=== PATIENT | male | born 1940 | race Caucasian/White ===

== ENCOUNTER 2017-04-08 04:15 | Emergency (ER) | payer MEDICARE ==
[2017-04-08 04:52] LABS: #Basophils 0.1 thou/uL (0.0-0.2); #Eosinphils 0.5 thou/uL (0.0-0.7); #Lymphocytes 1.6 thou/uL (1.20-3.40); #Monocytes 0.6 thou/uL (0.11-0.59); #Neutrophils 2.7 thou/uL (1.40-6.50); %Lymphocytes 28.9 % (21.0-51.0); %Monocytes 11.6 % (0.0-10.0); %Neutrophils 49.6 % (42.0-75.0); Hemoglobin 15.6 g/dL (14.0-18.0); Mean Corpuscular HGB CONC 33.2 g/dL (32.0-36.0); Mean Corpuscular Hemoglobin 32.6 pg (27.0-31.0); Mean Corpuscular Volume 98.2 fl (80.0-94.0); Mean Platelet Volume 8.4 fL (7.4-10.4); Platelet Count 186 thou/uL (130-400); RBC Distribution Width 11.9 % (11.5-14.5); Red Blood Cell (RBC) Count 4.79 mill/uL (4.70-6.10); White Blood Cell (WBC) Count 5.4 thou/uL (4.8-10.8)
[2017-04-08 05:09] LABS: Anion Gap 12 mmol/L (10-20); BUN (Urea Nitrogen) 17 mg/dL (8.4-25.7); Calc. Creatinine Clearance 0 mL/min (70-130); Calcium 9.6 mg/dL (7.8-10.44); Carbon Dioxide 28 mmol/L (23-31); Chloride 105 mmol/L (98-107); Estimated GFR-MDRD 73; Glucose 114 mg/dL (83-110); Potassium 3.5 mmol/L (3.5-5.1); Sodium 141 mmol/L (136-145)
[2017-04-08 05:39] LABS: Bilirubin Negative (Negative); Blood, Urine Negative (Negative); Clarity CLEAR (Clear); Glucose, Urine (Dipstick) Negative (Negative); Leukocyte Trace (Negative); Nitrite Negative (Negative); Protein, Urine (Dipstick) Negative (Neg-Trace); Specific Gravity, Urine 1.013 (1.002-1.036); Urobilinogen 0.2 mg/dL (0.2-1.0)
[2017-04-08 05:42] LABS: Bacteria/HPF None Seen HPF (None Seen); Hyaline Casts/LPF 0-3 HYALINE CAST LPF (0-3 Hyaline); Squamous Epithelial None Seen HPF (0-3); WBC/HPF 0-3 HPF (0-3)
== END 2017-04-08 07:10 | disposition home or self-care (01) ==
LOC: ERS 04:15
DX: N40.1 Benign prostatic hyperplasia with lower urinary tract symptoms (principal); R33.8 Other retention of urine; I48.91 Unspecified atrial fibrillation; I10 Essential (primary) hypertension; Z79.899 Other long term (current) drug therapy
CPT/HCPCS: 36415; 80048; 81003; 81015; 85025; 87086; 99283

== ENCOUNTER 2017-04-10 10:42 | Emergency (ER) | payer MEDICARE | END 2017-04-10 13:28 | disposition home or self-care (01) | LOC: ERS 10:42 | DX: N40.1 Benign prostatic hyperplasia with lower urinary tract symptoms (principal); R33.8 Other retention of urine; I48.91 Unspecified atrial fibrillation; I10 Essential (primary) hypertension; Z79.899 Other long term (current) drug therapy | CPT/HCPCS: 51702 ==

== ENCOUNTER 2017-04-16 10:39 | Emergency (ER) | payer MEDICARE ==
[2017-04-16 12:00] LABS: Bilirubin Negative (Negative); Blood, Urine Large (Negative); Clarity CLEAR (Clear); Glucose, Urine (Dipstick) Negative (Negative); Leukocyte Trace (Negative); Nitrite Negative (Negative); Protein, Urine (Dipstick) 30 mg/dL (Neg-Trace); Specific Gravity, Urine 1.022 (1.002-1.036)
[2017-04-16 12:03] LABS: Bacteria/HPF None Seen HPF (None Seen); Hyaline Casts/LPF 0-3 HYALINE CAST LPF (0-3 Hyaline); Squamous Epithelial 0-3 HPF (0-3)
[2017-04-16 12:16] LABS: RBC/HPF 21-50 HPF (0-3)
[2017-04-16 12:17] LABS: Crystals/HPF 1+ CA OXALATE HPF (Negative)
[2017-04-16 12:55] LABS: #Eosinphils 0.2 thou/uL (0.0-0.7); #Lymphocytes 0.9 thou/uL (1.20-3.40); #Monocytes 0.5 thou/uL (0.11-0.59); #Neutrophils 3.3 thou/uL (1.40-6.50); %Basophils 0.8 % (0.0-1.0); %Eosinophils 4.3 % (0.0-10.0); %Lymphocytes 17.3 % (21.0-51.0); %Monocytes 9.5 % (0.0-10.0); %Neutrophils 68.1 % (42.0-75.0); Hemoglobin 14.8 g/dL (14.0-18.0); Mean Corpuscular HGB CONC 32.7 g/dL (32.0-36.0); Mean Corpuscular Hemoglobin 32.4 pg (27.0-31.0); Mean Platelet Volume 8.2 fL (7.4-10.4); Platelet Count 159 thou/uL (130-400); RBC Distribution Width 11.7 % (11.5-14.5); Red Blood Cell (RBC) Count 4.58 mill/uL (4.70-6.10); White Blood Cell (WBC) Count 4.9 thou/uL (4.8-10.8)
[2017-04-16 13:17] LABS: ALT (SGPT) 15 U/L (8-55); AST (SGOT) 18 U/L (5-34); Alkaline Phosphatase 75 U/L (40-150); Anion Gap 9 mmol/L (10-20); BUN (Urea Nitrogen) 18 mg/dL (8.4-25.7); Calc. Creatinine Clearance 0 mL/min (70-130); Calcium 9.1 mg/dL (7.8-10.44); Carbon Dioxide 28 mmol/L (23-31); Chloride 106 mmol/L (98-107); Estimated GFR-MDRD 80; Globulin 2.6 g/dL (2.4-3.5); Glucose 103 mg/dL (83-110); Potassium 3.6 mmol/L (3.5-5.1); Protein, Total 6.6 g/dL (5.8-8.1); Sodium 139 mmol/L (136-145)
== END 2017-04-16 13:38 | disposition home or self-care (01) ==
LOC: ERS 10:39
DX: N39.0 Urinary tract infection, site not specified (principal); I48.91 Unspecified atrial fibrillation; I10 Essential (primary) hypertension; N40.0 Benign prostatic hyperplasia without lower urinary tract symptoms; Z79.899 Other long term (current) drug therapy
CPT/HCPCS: 36415; 80053; 81003; 81015; 85025; 87077; 87086; 87186; 99283

== ENCOUNTER 2017-04-23 09:24 | Outpatient (CLI) | payer MEDICARE | END 2017-04-23 09:25 | disposition home or self-care (01) | LOC: LAB 09:24 | PROVIDERS: ATTEND Urology | DX: Z12.5 Encounter for screening for malignant neoplasm of prostate (principal) | CPT/HCPCS: 36415; G0103 ==

== ENCOUNTER 2017-06-27 12:01 | Outpatient (CLI) | payer MEDICARE ==
[2017-06-27 13:02] LABS: Hemoglobin 15.7 g/dL (14.0-18.0); Mean Corpuscular HGB CONC 32.6 g/dL (32.0-36.0); Mean Corpuscular Hemoglobin 31.5 pg (27.0-31.0); Mean Corpuscular Volume 96.8 fl (80.0-94.0); Mean Platelet Volume 9.2 fL (7.4-10.4); Platelet Count 183 thou/uL (130-400); RBC Distribution Width 11.5 % (11.5-14.5); Red Blood Cell (RBC) Count 4.97 mill/uL (4.70-6.10); White Blood Cell (WBC) Count 5.1 thou/uL (4.8-10.8)
[2017-06-27 13:20] LABS: Anion Gap 13 mmol/L (10-20); BUN (Urea Nitrogen) 14 mg/dL (8.4-25.7); Calc. Creatinine Clearance 0 mL/min (70-130); Calcium 9.3 mg/dL (7.8-10.44); Carbon Dioxide 27 mmol/L (23-31); Chloride 103 mmol/L (98-107); Estimated GFR-MDRD 78; Glucose 96 mg/dL (83-110); Potassium 3.7 mmol/L (3.5-5.1); Sodium 139 mmol/L (136-145)
== END 2017-06-27 12:02 | disposition home or self-care (01) ==
LOC: LABBT 12:01
PROVIDERS: ATTEND Urology
DX: Z01.812 Encounter for preprocedural laboratory examination (principal); N40.1 Benign prostatic hyperplasia with lower urinary tract symptoms; R33.8 Other retention of urine
CPT/HCPCS: 80048; 81001; 85027; 87086

== ENCOUNTER 2017-07-05 06:00 | Day surgery (SDC) | payer MEDICARE ==
[2017-06-27 12:26] VITALS: BMI 24.3
[2017-07-05] MEDS ORDERED: Midazolam HCl 2 mg/2 ml Vial ONE (06:42)
[2017-07-05] MEDS ORDERED: Fentanyl 100 MCG/2 ML VIAL ONE (06:42)
[2017-07-05] MEDS ORDERED: Clindamycin/D5W 900 mg/50 ml Premix Bag ONE (06:47)
[2017-07-05] MEDS ORDERED: Dexamethasone 4 mg/ml Vial ONE (06:47)
[2017-07-05] MEDS ORDERED: B & O ONE (07:12)
[2017-07-05] MEDS ORDERED: Furosemide 20 MG/2 ML VIAL ONE (07:12)
[2017-07-05] MEDS ORDERED: Iothalamate Meglumine 60% 50 ML VIAL FS ONE (07:12)
[2017-07-05] MEDS ORDERED: cefTRIAXone\\ROCEPHIN 1 GM, Syringe 0.4 ML in Sterile Water 9.6 ML SLOW IVP SCH (07:15)
--- NOTE | 2017-07-05 11:32 | OP ---
DATE OF SERVICE: 07/05/2017 PREOPERATIVE DIAGNOSES: Benign prostatic hypertrophy and retention. POSTOPERATIVE DIAGNOSES: Benign prostatic hypertrophy and retention. PROCEDURE: GreenLight laser vaporization of the prostate with enucleation of the middle of the lateral lobes, 344,002 joules used. SURGEON: Hali Rutherford M.D. ANESTHESIA: General with endotracheal tube. ESTIMATED BLOOD LOSS: Minimal. DRAINS REMAINING: A 20-Vietnamese 2-way. FINDINGS: Adequate stream with scope removed at the end of the case. SPECIMENS: Prostate. INDICATIONS: The patient is a 76-year-old male who is followed in the office for retention and failed multiple voiding trials despite starting maximum medical therapy and so was set up for definitive intervention. PROCEDURE: The patient was brought into the room by Anesthesia, laid on the table in supine position. After receiving general anesthetic and endotracheal tube his legs were placed in the lithotomy position and his perineum was prepped and draped in sterile fashion after removing his indwelling catheter. A 22.5 Vietnamese scope was used to traverse the urethra and into the bladder. A hair that has been there for some time was noted with some debris on it and by the end of the case it had been rinsed out. Otherwise, there was nothing of concern within the bladder. The ureteral orifices were identified and preserved throughout the case. Power level of 80 was used with the bladder neck to initially manipulate the middle lobe and the lateral lobes. A power level of 180 was used for the mid gland and a power level of 80 was used near the veru. Middle lobe was taken down to the trigone and the trigone was elevated. This was taken down as well. By the time the majority of the prostate had been removed, attention was turned back to the bladder neck where the trigone was taken all the way down to the bladder floor and this was done on both sides of the UO's laterally so that the UO's were elevated and the rest of the bladder floor was taken down at the bladder neck. Multiple chips were too large to rinse out and required a grasper to evacuate. When the scope was removed a good stream was noted. Scope was put back in. Bladder decompressed and hemostasis ensured. A power level of 80 was used to paint the prostate bed where any concern was and then the scope was removed. A final time after leaving a wire in place and a Councill was made to place over the wire and then the wire removed and the Councill was placed to gravity. The patient tolerated the procedure well and was awakened and transferred to the PACU in stable condition. NOEMÍ
--- NOTE | 2017-07-05 16:26 | EKG ---
Test Reason : PREOP Blood Pressure : / mmHG Vent. Rate : 074 BPM Atrial Rate : 074 BPM P-R Int : 162 ms QRS Dur : 116 ms QT Int : 444 ms P-R-T Axes : 071 -31 073 degrees QTc Int : 492 ms Sinus rhythm with occasional Premature ventricular complexes Left axis deviation Incomplete left bundle branch block Prolonged QT Abnormal ECG No previous ECGs available Confirmed by DR. Germaine DURANT ([id number]) on 07/05/2017 4:26:25 PM Referred By: [email or web address] Confirmed By:DR. Germaine DURANT
[2017-07-05] MEDS ORDERED: ePHEDrine/0.9% NaCl/PF SYRINGE 50 mg/10 ml ONE (16:28)
[2017-07-05] MEDS ORDERED: Lidocaine 1% PF 5 ML VIAL ONE (16:28)
[2017-07-05] MEDS ORDERED: Glycopyrrolate 0.2 MG/ML 5 ML SYRINGE ONE ×2 (16:28)
[2017-07-05] MEDS ORDERED: PHENYLEPHRINE-NS 100 MCG/ML 10 ML SYRINGE ONE (16:28)
[2017-07-05] MEDS ORDERED: PROPOFOL 200 MG/20 ML VIAL ONE (16:28)
== END 2017-07-05 12:10 | disposition home or self-care (01) ==
LOC: SDC 06:00
PROVIDERS: ATTEND Urology
PROC: 0V507ZZ Destruction of Prostate, Via Natural or Artificial Opening (ICD-10-PCS; principal; 2017-07-05)
DX: N40.1 Benign prostatic hyperplasia with lower urinary tract symptoms (principal); R33.9 Retention of urine, unspecified; R35.1 Nocturia; Z88.5 Allergy status to narcotic agent; Z98.890 Other specified postprocedural states; Z91.018 Allergy to other foods
CPT/HCPCS: 88305; 93005; 93010; A4216; J0696; J1100; J1940; J2001; J2250; J2704; J3010; J3490; Q9961

== ENCOUNTER 2018-06-19 10:00 | Outpatient (CLI) | payer MEDICARE ==
[2018-06-19 16:24] LABS: #Basophils 0.1 thou/uL (0.0-0.2); #Eosinphils 0.5 thou/uL (0.0-0.7); #Lymphocytes 1.5 thou/uL (1.20-3.40); #Monocytes 0.6 thou/uL (0.11-0.59); #Neutrophils 3.7 thou/uL (1.40-6.50); %Basophils 1.3 % (0.0-1.0); %Eosinophils 7.5 % (0.0-10.0); %Lymphocytes 22.7 % (21.0-51.0); %Monocytes 10.1 % (0.0-10.0); %Neutrophils 58.5 % (42.0-75.0); Hemoglobin 14.8 g/dL (14.0-18.0); Mean Corpuscular HGB CONC 32.2 g/dL (32.0-36.0); Mean Corpuscular Hemoglobin 31.4 pg (27.0-31.0); Mean Corpuscular Volume 97.4 fL (78.0-98.0); Mean Platelet Volume 8.4 fL (7.4-10.4); Platelet Count 189 thou/uL (130-400); RBC Distribution Width 12.3 % (11.5-14.5); Red Blood Cell (RBC) Count 4.73 mill/uL (4.70-6.10); White Blood Cell (WBC) Count 6.4 thou/uL (4.8-10.8)
--- NOTE | 2018-06-19 16:31 | RAD ---
XR Chest Pa Lat STANDARD HISTORY: Preop COMPARISON: 04/13/2014 study FINDINGS: Heart size is within normal limits there are atherosclerotic changes of the aorta. The lung s are clear of infiltrates. There are arthritic changes of the spine. Moderate arthritic changes of both shoulders are noted IMPRESSION: No active intrathoracic disease.
[2018-06-19 16:45] LABS: Anion Gap 11 mmol/L (10-20); BUN (Urea Nitrogen) 18 mg/dL (8.4-25.7); Calc. Creatinine Clearance 0 mL/min (70-130); Calcium 9.1 mg/dL (7.8-10.44); Carbon Dioxide 29 mmol/L (23-31); Chloride 106 mmol/L (98-107); Estimated GFR-MDRD 68; Glucose 98 mg/dL (83-110); Potassium 3.8 mmol/L (3.5-5.1); Sodium 142 mmol/L (136-145)
== END 2018-06-19 10:01 | disposition home or self-care (01) ==
LOC: LABBT 10:00
PROVIDERS: ATTEND Specialist
DX: Z01.818 Encounter for other preprocedural examination (principal); M79.9 Soft tissue disorder, unspecified
CPT/HCPCS: 71046; 80048; 85025; 93005; 93010

== ENCOUNTER 2018-06-22 06:57 | Day surgery (SDC) | payer MEDICARE ==
[2018-06-19 15:52] VITALS: BMI 26.2
[2018-06-22] MEDS ORDERED: Ketorolac Tromethamine 30 MG/ML VIAL ONE (08:13)
[2018-06-22] MEDS ORDERED: Midazolam HCl 2 mg/2 ml Vial ONE (08:33)
[2018-06-22] MEDS ORDERED: Bupivacaine/Epinephrine 0.25% 30 ML VIAL ONE ×2 (09:05→10:20)
[2018-06-22] MEDS ORDERED: Rocuronium Bromide 10 MG/ML (10ML VIAL) ONE (10:49)
[2018-06-22] MEDS ORDERED: PHENYLEPHRINE-NS 100 MCG/ML 10 ML SYRINGE ONE (10:49)
[2018-06-22] MEDS ORDERED: ePHEDrine 50 MG/ML VIAL ONE (10:49)
[2018-06-22] MEDS ORDERED: PROPOFOL 200 MG/20 ML VIAL ONE (10:49)
[2018-06-22] MEDS ORDERED: Ondansetron PF 4 MG/2 ML Vial ONE (10:49)
[2018-06-22] MEDS ORDERED: Succinylcholine Chloride 20 MG/ML 10 ml SYRINGE FS ONE (10:49)
[2018-06-22] MEDS ORDERED: Bacitracin Zinc Ointment 30 gm TUBE ONE (11:04)
[2018-06-22] MEDS ORDERED: Fentanyl 100 MCG/2 ML VIAL ONE (11:49)
--- NOTE | 2018-06-23 13:01 | OP ---
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 A large soft tissue tumor of his upper back just left of midline measuring about 10 cm, and a 3 cm soft tissue mass of his left lateral mid back. 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 A large soft tissue tumor of his upper back just left of midline measuring about 10 cm, and a 3 cm soft tissue mass of his left lateral mid back with suspected lipomas in each location. PROCEDURES PERFORMED: Excision of a 15 cm left posterior neck and shoulder soft tissue tumor, excision of 10 cm soft tissue tumor of mid back, and excision of 3 cm soft tissue tumor of left lateral back. ANESTHESIA: General endotracheal. INDICATIONS: The patient is a 77-year-old white male. He has a large protruding tumor from his left posterior neck that prompted this evaluation. He is recognized to have 2 additional substantial soft tissue tumors and I recommend excision of all 3 under the same anesthetic. DESCRIPTION OF OPERATION: Informed consent was obtained. The patient was taken to the operating room, where general endotracheal anesthesia was obtained with the patient in supine position. He was then rolled over into a prone virgie-knife position. He was able to flex his neck anteriorly so as to give appropriate exposure of the neck mass. The entire area was prepped with Betadine and draped in sterile fashion. Drapes were held in place using skin lakia. Attention was turned first to the neck mass. Local anesthetic was infiltrated circumferentially using 0.25% Marcaine with epinephrine. An elliptical incision was created over the protruding skin mass. The skin flaps were raised superiorly and inferiorly without entering the mass. The mass had a visible and palpable consistency typical of a large lipoma. This was carefully dissected circumferentially leaving none of the lipoma in situ. It was removed from the underlying muscular tissue and hemostasis was maintained with electrocautery. The tumor with the overlying skin bridge was passed off the field. The skin edges were mobilized off the underlying muscle somewhat using electrocautery. A #19 round fluted drain was obtained and placed within the wound and brought out to the right of the incision and it was secured with a 3-0 nylon suture. The skin edges were tailored to better approximation. The portion of the wound was closed with interrupted sutures of 3-0 Vicryl. The skin edges were approximated with skin lakia. Attention was then turned to the lipoma in the mid back. This was also locally anesthetized and excised using an overlying elliptical island of skin. It was dissected circumferentially and removed off the underlying muscular tissue as well and passed off the field. It was also closed transversely using a running suture of 3-0 Vicryl and skin lakia. Finally, attention was turned to the left lateral mass, which was dissected in a vertical fashion rather than transverse, but otherwise this was the same procedure. It was also closed with Vicryl and skin lakia. All specimens were passed off the field and sent to Pathology. There were no complications. I placed a 10-Estonian drain in the mid back incision that was also secured with 3-0 nylon suture. The patient tolerated the procedure well and was taken to recovery room in stable condition. Antibiotic ointment and dry gauze dressings were placed over all 3 incisions. Job ID: [id number]
== END 2018-06-22 14:28 | disposition home or self-care (01) ==
LOC: SDC 06:57
PROVIDERS: ATTEND Specialist
PROC: 0JB50ZZ Excision of Left Neck Subcutaneous Tissue and Fascia, Open Approach (ICD-10-PCS; principal; 2018-06-22)
PROC: 0JB70ZZ Excision of Back Subcutaneous Tissue and Fascia, Open Approach (ICD-10-PCS; 2018-06-22)
PROC: 0JB70ZZ Excision of Back Subcutaneous Tissue and Fascia, Open Approach (ICD-10-PCS; 2018-06-22)
DX: D17.0 Benign lipomatous neoplasm of skin and subcutaneous tissue of head, face and neck (principal); D17.1 Benign lipomatous neoplasm of skin and subcutaneous tissue of trunk; E78.00 Pure hypercholesterolemia, unspecified; Z79.899 Other long term (current) drug therapy; Z87.891 Personal history of nicotine dependence; Z88.5 Allergy status to narcotic agent
CPT/HCPCS: 88304; J0131; J0690; J1885; J2250; J3010

== ENCOUNTER 2019-04-12 22:38 | Emergency (ER) | payer MEDICARE, OTHER ==
[~2019-04-12 22:38] MED LIST: Iopamidol-370 76% 500 ML 1 ML ONE
[2019-04-12 23:26] LABS: #Eosinphils 0.4 thou/uL (0.0-0.7); #Lymphocytes 0.4 thou/uL (1.20-3.40); #Monocytes 0.8 thou/uL (0.11-0.59); #Neutrophils 12.7 thou/uL (1.40-6.50); %Eosinophils 2.7 % (0.0-10.0); %Lymphocytes 2.6 % (21.0-51.0); %Monocytes 5.6 % (0.0-10.0); %Neutrophils 89.1 % (42.0-75.0); Hemoglobin 16.1 g/dL (14.0-18.0); Mean Corpuscular HGB CONC 32.2 g/dL (32.0-36.0); Mean Corpuscular Hemoglobin 32.1 pg (27.0-31.0); Mean Corpuscular Volume 99.7 fL (78.0-98.0); Mean Platelet Volume 8.7 fL (7.4-10.4); Platelet Count 178 thou/uL (130-400); RBC Distribution Width 11.9 % (11.5-14.5); White Blood Cell (WBC) Count 14.2 thou/uL (4.8-10.8)
[2019-04-12 23:48] LABS: ALT (SGPT) 19 U/L (8-55); AST (SGOT) 23 U/L (5-34); Albumin 4.1 g/dL (3.4-4.8); Alkaline Phosphatase 96 U/L (40-110); Anion Gap 12 mmol/L (10-20); BUN (Urea Nitrogen) 20 mg/dL (8.4-25.7); Bilirubin, Total 0.8 mg/dL (0.2-1.2); Calc. Creatinine Clearance 0 mL/min (70-130); Calcium 8.8 mg/dL (7.8-10.44); Carbon Dioxide 27 mmol/L (23-31); Chloride 105 mmol/L (98-107); Estimated GFR-MDRD 62; Globulin 2.7 g/dL (2.4-3.5); Glucose 119 mg/dL (83-110); Lipase 35 U/L (8-78); Potassium 3.9 mmol/L (3.5-5.1); Protein, Total 6.8 g/dL (5.8-8.1); Sodium 140 mmol/L (136-145)
--- NOTE | 2019-04-13 08:56 | CT ---
PRELIMINARY REPORT/[facility]/EMERGENCY AFTER HOURS PROCEDURE: PROCEDURE: CT Scan Abdomen and Pelvis with IV Contrast Material. HISTORY: Abdomen pain. TECHNIQUE: Axial images were performed with multiplanar reconstructions. The patient was given iodin ated contrast intravenously. The patient was not given oral contrast material. COMPARISONS: None . FINDINGS: Clear lung bases. Several subcentimeter hypoattenuating densities both lobes of the liver. Spleen, adrenals, and pancr eas show no abnormality. Kidneys show normal enhancement and no obstructive uropathy. Small stones in the gallbladder with no inflammation and normal size biliary tree. No abdominal ascites or pneumoperitoneum. Mild atherosclerosis aorta. No lymphadenopathy. Fluid throughout large and small bowel with prominent small bowel mucosa consistent with enteritis th at's probably infectious. No bowel obstruction. Appendix is not visualized. Pelvis shows no masses or fluid. Normal urinary bladder. No acute bony abnormality. IMPRESSION: Enteritis is probably infectious. Nonspecific subcentimeter hypoattenuating densities in the liver. Cholelithiasis. ELECTRONICALLY SIGNED BY: Samm Newman MD Apr 13, 2019 12:36:14 AM CONTRACT DESIGN AGENT This report is intended for review by the ordering physician only, in accordance of law. If you recei ve this report in error, please call [facility] at [phone]. FINAL REPORT ABDOMEN CT WITH CONTRAST PELVIC CT WITH CONTRAST: HISTORY: Left lower quadrant abdominal pain. FINDINGS: ABDOMEN CT: Visualized lung bases. Appropriate enhancement of the solid organs. Hypodensities in the liver are too small to characterize. There is a hypodensity in the mid body of the pancreas which may represen t a focal area of fat due to atrophy. No evidence of abdominal lymphadenopathy. Symmetric enhancement of the kidneys. No obstructive urop athy. Subcentimeter hypodensities in the left and right renal cortex likely represent cysts. There are multiple fluid-filled distended loops of small bowel. The ileocecal junction is patent. N ormal caliber appendix, that is fluid-filled. No inflammatory change. There is fluid attenuation th roughout the colon. There is evidence of cholelithiasis. PELVIC CT: There is a mildly prominent prostate gland. IMPRESSION: This report is in agreement with the preliminary report by [facility]. Enteritis of an infecti ous or inflammatory process. POS: OFF
== END 2019-04-13 01:11 | disposition home or self-care (01) ==
LOC: ERS 22:38
DX: K52.9 Noninfective gastroenteritis and colitis, unspecified (principal); N40.0 Benign prostatic hyperplasia without lower urinary tract symptoms; I48.91 Unspecified atrial fibrillation; I10 Essential (primary) hypertension; Z79.899 Other long term (current) drug therapy
CPT/HCPCS: 36415; 74177; 80053; 83690; 85025; Q9967

== ENCOUNTER 2021-01-23 13:41 | Outpatient (CLI) | payer MEDICARE | END 2021-01-23 13:42 | disposition home or self-care (01) | LOC: BICCT 13:41 | PROVIDERS: ATTEND Urology | DX: R31.0 Gross hematuria (principal); N32.89 Other specified disorders of bladder; R91.8 Other nonspecific abnormal finding of lung field | CPT/HCPCS: 74178; 82565; Q9967 ==

== ENCOUNTER 2022-12-14 16:06 | Inpatient (IN) | payer OTHER, MEDICARE ==
[2022-12-14 17:20] LABS: #Monocytes 0.6 thou/uL (0.11-0.59); #Neutrophils 7.6 thou/uL (1.40-6.50); %Basophils 0.2 % (0.0-1.0); %Lymphocytes 2.4 % (21.0-51.0); Hematocrit 43.2 % (42.0-52.0); Hemoglobin 14.3 g/dL (14.0-18.0); Mean Corpuscular HGB CONC 33.1 g/dL (32.0-36.0); Mean Corpuscular Hemoglobin 32.2 pg (27.0-31.0); Mean Corpuscular Volume 97.3 fl (78.0-98.0); Mean Platelet Volume 10.9 fL (7.4-10.4); Platelet Count 143 10x3/uL (130-400); RBC Distribution Width 13.4 % (11.5-14.5); Red Blood Cell (RBC) Count 4.44 mill/uL (4.70-6.10); White Blood Cell (WBC) Count 8.4 10x3/uL (4.8-10.8)
[2022-12-14 17:48] LABS: CRP (Inflammatory) 0.63 mg/dL (= or < 0.5); Lipase 10 U/L (8-78); Magnesium 1.9 mg/dL (1.6-2.6)
[2022-12-14 17:50] LABS: ALT (SGPT) 14 U/L (8-55); AST (SGOT) 14 U/L (5-34); Alkaline Phosphatase 72 U/L (40-110); Anion Gap 12 mmol/L (10-20); BUN (Urea Nitrogen) 19 mg/dL (8.4-25.7); Bilirubin, Total 1.3 mg/dL (0.2-1.2); Calc. Creatinine Clearance 0 mL/min (70-130); Calcium 8.7 mg/dL (7.8-10.44); Carbon Dioxide 26 mmol/L (23-31); Chloride 105 mmol/L (98-107); Estimated GFR 78; Globulin 1.7 g/dL (2.4-3.5); Glucose 130 mg/dL (83-110); Potassium 3.8 mmol/L (3.5-5.1); Protein, Total 5.7 g/dL (5.8-8.1); Sodium 139 mmol/L (136-145)
[2022-12-14] MEDS ORDERED: Cefepime 2 GM VIAL ONE (21:19)
[2022-12-14] MEDS ORDERED: Vancomycin 1 GM/200 ML (FROZEN) BAG ONE (21:20)
[2022-12-14 22:27] VITALS: BMI 24.3
[2022-12-14] MEDS ORDERED: Ondansetron ODT 4 MG TAB PO PRN (22:37)
[2022-12-14] MEDS ORDERED: Ondansetron PF 4 MG/2 ML Vial IVP PRN (22:37)
[2022-12-14] MEDS ORDERED: Vancomycin HCl 500 MG in Sodium Chloride 0.9% 100 ML IVPB SCH (23:59)
[2022-12-15 00:06] LABS: Lactic Acid 2.8 mmol/L (0.5-2.2)
[2022-12-15 02:31] LABS: Bacteria/HPF None Seen HPF (None Seen); Bilirubin Negative (Negative); Blood, Urine Negative (Negative); Clarity Clear (Clear); Glucose, Urine (Dipstick) Normal (Negative); Ketone, Urine Negative (Negative); Leukocyte Negative Leu/uL (Negative); Nitrite Negative (Negative); Protein, Urine (Dipstick) Negative (Neg-Trace); RBC/HPF 0-3 HPF (0-3); Specific Gravity, Urine 1.022 (1.002-1.036); Squamous Epithelial 0-3 HPF (0-3); Urobilinogen Normal mg/dL (Less than 2); WBC/HPF 0-3 HPF (0-3)
[2022-12-15] MEDS: Lactated Ringer's 1,000 ML IV SCH ×2 (03:10→20:52)
[2022-12-15 05:49] LABS: Hematocrit 39.2 % (42.0-52.0); Hemoglobin 13.1 g/dL (14.0-18.0); Mean Corpuscular HGB CONC 33.4 g/dL (32.0-36.0); Mean Corpuscular Hemoglobin 32.7 pg (27.0-31.0); Mean Corpuscular Volume 97.8 fl (78.0-98.0); Mean Platelet Volume 11.8 fL (7.4-10.4); Platelet Count 137 10x3/uL (130-400); RBC Distribution Width 13.9 % (11.5-14.5); Red Blood Cell (RBC) Count 4.01 mill/uL (4.70-6.10); White Blood Cell (WBC) Count 10.4 10x3/uL (4.8-10.8)
[2022-12-15] MEDS: Acetaminophen 325 MG TAB PO PRN (06:02)
[2022-12-15 06:20] LABS: ALT (SGPT) 11 U/L (8-55); AST (SGOT) 11 U/L (5-34); Albumin 3.5 g/dL (3.4-4.8); Alkaline Phosphatase 53 U/L (40-110); Anion Gap 8 mmol/L (10-20); BUN (Urea Nitrogen) 21 mg/dL (8.4-25.7); Calc. Creatinine Clearance 62 mL/min (70-130); Calcium 8.6 mg/dL (7.8-10.44); Carbon Dioxide 26 mmol/L (23-31); Chloride 104 mmol/L (98-107); Estimated GFR 73; Glucose 124 mg/dL (83-110); Potassium 3.3 mmol/L (3.5-5.1); Protein, Total 5.5 g/dL (5.8-8.1); Sodium 135 mmol/L (136-145)
[2022-12-15 06:32] LABS: Delete Auto Diff?? YES; Manual Diff?? YES
[2022-12-15 06:55] LABS: Band 33 % (5-11); Burr Cells SLIGHT = 2-5 cells HPF (0-1); CellaVision Operator ID LAB.GE; Lymphocytes 2 % (21-51); Metamyelocyte 6 % (0-0); Monocytes 2 % (0-10); Neutrophil 57 % (42-75); Platelet Adequacy Comment Platelets Normal; Polychromasia SLIGHT = 2-3 cells HPF (0-2); Total Cell Count 101
[2022-12-15] MEDS ORDERED: Cefepime 2 GM in Sodium Chloride 0.9% 100 ML IVPB SCH (09:00)
[2022-12-15] MEDS ORDERED: CEFEPIME HCL IN DEXTROSE 5 % 1 GM/50 ML BAG IVPB SCH (09:00)
[2022-12-15] MEDS ORDERED: FLU VACC QS2023(65UP)/MF59C/PF 60 MCG/0.5 ML SYRINGE IM ONE (09:00)
[2022-12-15] MEDS ORDERED: Lisinopril 20 MG TAB PO SCH (09:00)
[2022-12-15] MEDS ORDERED: Cefepime 1 GM in Sodium Chloride 0.9% 100 ML IVPB SCH (09:00)
[2022-12-15] MEDS ORDERED: Lactated Ringer's 1,000 ML IV SCH (09:15)
[2022-12-15] MEDS: Tamsulosin HCl 0.4 MG CAP PO SCH ×2 (09:53→20:51)
[2022-12-15] MEDS: Finasteride 5 MG TAB PO SCH (09:53)
[2022-12-15] MEDS: Furosemide 20 MG TAB PO SCH ×2 (09:54→20:51)
[2022-12-15] MEDS: Terbinafine 250 MG TAB PO SCH (09:58)
[2022-12-15] MEDS: VANCOMYCIN 1.25 GM/250 ML BAG 1.25 GM in Premix Bag 1 BAG IVPB SCH ×2 (11:05→23:48)
[2022-12-15] MEDS: Atorvastatin Calcium 10 MG TAB PO SCH (20:51)
[2022-12-16] MEDS: Lactated Ringer's 1,000 ML IV SCH ×2 (04:48→21:28)
[2022-12-16 05:37] LABS: #Monocytes 0.6 thou/uL (0.11-0.59); #Neutrophils 7.5 thou/uL (1.40-6.50); %Basophils 0.4 % (0.0-1.0); %Eosinophils 0.1 % (0.0-10.0); %Lymphocytes 5.5 % (21.0-51.0); %Monocytes 6.7 % (0.0-10.0); %Neutrophils 86.9 % (42.0-75.0); Hematocrit 35.6 % (42.0-52.0); Hemoglobin 11.6 g/dL (14.0-18.0); Mean Corpuscular HGB CONC 32.6 g/dL (32.0-36.0); Mean Corpuscular Volume 98.1 fl (78.0-98.0); Mean Platelet Volume 11.4 fL (7.4-10.4); Platelet Count 96 10x3/uL (130-400); RBC Distribution Width 14.2 % (11.5-14.5); Red Blood Cell (RBC) Count 3.63 mill/uL (4.70-6.10); White Blood Cell (WBC) Count 8.6 10x3/uL (4.8-10.8)
[2022-12-16 05:57] LABS: Lactic Acid 0.9 mmol/L (0.5-2.2)
[2022-12-16 06:03] LABS: ALT (SGPT) 11 U/L (8-55); AST (SGOT) 17 U/L (5-34); Alkaline Phosphatase 49 U/L (40-110); Anion Gap 8 mmol/L (10-20); BUN (Urea Nitrogen) 21 mg/dL (8.4-25.7); Bilirubin, Total 0.6 mg/dL (0.2-1.2); Calc. Creatinine Clearance 68 mL/min (70-130); Calcium 8.3 mg/dL (7.8-10.44); Carbon Dioxide 24 mmol/L (23-31); Chloride 106 mmol/L (98-107); Estimated GFR 82; Globulin 1.9 g/dL (2.4-3.5); Glucose 89 mg/dL (83-110); Potassium 3.2 mmol/L (3.5-5.1); Protein, Total 4.9 g/dL (5.8-8.1); Sodium 135 mmol/L (136-145)
[2022-12-16] MEDS ORDERED: Potassium Chloride 20 MEQ TAB PO SCH (08:00)
[2022-12-16] MEDS: Tamsulosin HCl 0.4 MG CAP PO SCH ×2 (08:44→21:28)
[2022-12-16] MEDS: Terbinafine 250 MG TAB PO SCH (08:44)
[2022-12-16] MEDS: Finasteride 5 MG TAB PO SCH (08:45)
[2022-12-16 09:54] LABS: Vancomycin, Trough 16.7 ug/mL
[2022-12-16 10:05] LABS: Bilirubin Negative (Negative); Blood, Urine Negative (Negative); Clarity Clear (Clear); Glucose, Urine (Dipstick) Normal (Negative); Ketone, Urine Negative (Negative); Leukocyte Negative Leu/uL (Negative); Nitrite Negative (Negative); Protein, Urine (Dipstick) 10 mg/dL (Neg-Trace); Specific Gravity, Urine 1.017 (1.002-1.036); Urobilinogen Normal mg/dL (Less than 2); pH, Urine 5.5 (5.0-9.0)
[2022-12-16 10:28] LABS: Magnesium 1.9 mg/dL (1.6-2.6)
[2022-12-16] MEDS: VANCOMYCIN 1.25 GM/250 ML BAG 1.25 GM in Premix Bag 1 BAG IVPB SCH ×2 (11:56→21:30)
[2022-12-16] MEDS: Atorvastatin Calcium 10 MG TAB PO SCH (21:28)
[2022-12-17 05:02] LABS: #Eosinphils 0.3 thou/uL (0.0-0.7); #Monocytes 0.5 thou/uL (0.11-0.59); #Neutrophils 4.4 thou/uL (1.40-6.50); %Basophils 0.7 % (0.0-1.0); %Eosinophils 4.5 % (0.0-10.0); %Lymphocytes 12.4 % (21.0-51.0); %Neutrophils 72.9 % (42.0-75.0); Hemoglobin 10.8 g/dL (14.0-18.0); Mean Corpuscular HGB CONC 32.7 g/dL (32.0-36.0); Mean Corpuscular Hemoglobin 32.2 pg (27.0-31.0); Mean Corpuscular Volume 98.5 fl (78.0-98.0); Mean Platelet Volume 11.9 fL (7.4-10.4); Platelet Count 101 10x3/uL (130-400); RBC Distribution Width 14.1 % (11.5-14.5); Red Blood Cell (RBC) Count 3.35 mill/uL (4.70-6.10)
[2022-12-17 05:26] LABS: ALT (SGPT) 10 U/L (8-55); AST (SGOT) 16 U/L (5-34); Albumin 2.9 g/dL (3.4-4.8); Alkaline Phosphatase 48 U/L (40-110); Anion Gap 8 mmol/L (10-20); BUN (Urea Nitrogen) 19 mg/dL (8.4-25.7); Bilirubin, Total 0.3 mg/dL (0.2-1.2); Calc. Creatinine Clearance 76 mL/min (70-130); Calcium 8.3 mg/dL (7.8-10.44); Carbon Dioxide 25 mmol/L (23-31); Chloride 109 mmol/L (98-107); Estimated GFR 87; Glucose 82 mg/dL (83-110); Potassium 3.5 mmol/L (3.5-5.1); Protein, Total 4.9 g/dL (5.8-8.1); Sodium 138 mmol/L (136-145)
[2022-12-17] MEDS ORDERED: Potassium Chloride 20 MEQ TAB PO SCH (07:00)
[2022-12-17] MEDS: Finasteride 5 MG TAB PO SCH (09:32)
[2022-12-17] MEDS: Terbinafine 250 MG TAB PO SCH (09:32)
[2022-12-17] MEDS: Tamsulosin HCl 0.4 MG CAP PO SCH ×2 (09:32→19:38)
[2022-12-17] MEDS ORDERED: Sulfameth/Trimethoprim DS 800-160mg TAB PO SCH ×2 (09:45→21:00)
[2022-12-17] MEDS ORDERED: Furosemide 20 MG TAB PO SCH ×2 (10:00→15:15)
[2022-12-17] MEDS: Lactated Ringer's 1,000 ML IV SCH (18:13)
[2022-12-17] MEDS: Sulfameth/Trimethoprim DS 800-160mg TAB PO SCH (19:38)
[2022-12-17] MEDS: Atorvastatin Calcium 10 MG TAB PO SCH (19:38)
[2022-12-17] MEDS: Acetaminophen 325 MG TAB PO PRN (23:43)
[2022-12-18 04:01] LABS: #Eosinphils 0.3 thou/uL (0.0-0.7); #Monocytes 0.6 thou/uL (0.11-0.59); #Neutrophils 3.9 thou/uL (1.40-6.50); %Basophils 0.6 % (0.0-1.0); %Lymphocytes 12.7 % (21.0-51.0); %Monocytes 10.1 % (0.0-10.0); Hematocrit 32.8 % (42.0-52.0); Hemoglobin 10.8 g/dL (14.0-18.0); Mean Corpuscular HGB CONC 32.9 g/dL (32.0-36.0); Mean Corpuscular Hemoglobin 32.4 pg (27.0-31.0); Mean Corpuscular Volume 98.5 fl (78.0-98.0); Platelet Count 108 10x3/uL (130-400); RBC Distribution Width 14.2 % (11.5-14.5); Red Blood Cell (RBC) Count 3.33 mill/uL (4.70-6.10); White Blood Cell (WBC) Count 5.4 10x3/uL (4.8-10.8)
[2022-12-18 04:25] LABS: ALT (SGPT) 11 U/L (8-55); AST (SGOT) 12 U/L (5-34); Albumin 2.9 g/dL (3.4-4.8); Alkaline Phosphatase 49 U/L (40-110); Anion Gap 9 mmol/L (10-20); BUN (Urea Nitrogen) 16 mg/dL (8.4-25.7); Bilirubin, Total 0.2 mg/dL (0.2-1.2); Calc. Creatinine Clearance 62 mL/min (70-130); Calcium 8.4 mg/dL (7.8-10.44); Carbon Dioxide 26 mmol/L (23-31); Chloride 107 mmol/L (98-107); Estimated GFR 73; Globulin 2.1 g/dL (2.4-3.5); Glucose 138 mg/dL (83-110); Potassium 3.4 mmol/L (3.5-5.1); Sodium 139 mmol/L (136-145)
[2022-12-18] MEDS ORDERED: Potassium Chloride 20 MEQ TAB PO SCH (06:45)
[2022-12-18] MEDS: Finasteride 5 MG TAB PO SCH (08:45)
[2022-12-18] MEDS: Sulfameth/Trimethoprim DS 800-160mg TAB PO SCH (08:45)
[2022-12-18] MEDS: Tamsulosin HCl 0.4 MG CAP PO SCH ×2 (08:46→19:54)
[2022-12-18] MEDS: Terbinafine 250 MG TAB PO SCH (08:46)
[2022-12-18] MEDS: Furosemide 20 MG TAB PO SCH (08:46)
[2022-12-18] MEDS: VANCOMYCIN 1.25 GM/250 ML BAG 1.25 GM in Premix Bag 1 BAG IVPB SCH ×2 (13:15→23:23)
[2022-12-18] MEDS: Atorvastatin Calcium 10 MG TAB PO SCH (19:54)
[2022-12-18] MEDS ORDERED: VANCOMYCIN 1.25 GM/250 ML BAG 1.25 GM in Premix Bag 1 BAG IVPB SCH (21:00)
[2022-12-19 05:30] LABS: #Basophils 0.1 thou/uL (0.0-0.2); #Eosinphils 0.3 thou/uL (0.0-0.7); #Monocytes 0.7 thou/uL (0.11-0.59); #Neutrophils 3.7 thou/uL (1.40-6.50); %Eosinophils 5.4 % (0.0-10.0); %Lymphocytes 16.6 % (21.0-51.0); %Monocytes 11.5 % (0.0-10.0); %Neutrophils 64.5 % (42.0-75.0); Hematocrit 33.8 % (42.0-52.0); Hemoglobin 11.1 g/dL (14.0-18.0); Mean Corpuscular HGB CONC 32.8 g/dL (32.0-36.0); Mean Corpuscular Hemoglobin 32.3 pg (27.0-31.0); Mean Corpuscular Volume 98.3 fl (78.0-98.0); Mean Platelet Volume 11.2 fL (7.4-10.4); Platelet Count 125 10x3/uL (130-400); RBC Distribution Width 14.3 % (11.5-14.5); Red Blood Cell (RBC) Count 3.44 mill/uL (4.70-6.10); White Blood Cell (WBC) Count 5.7 10x3/uL (4.8-10.8)
[2022-12-19 05:54] LABS: ALT (SGPT) 10 U/L (8-55); AST (SGOT) 10 U/L (5-34); Albumin 2.9 g/dL (3.4-4.8); Alkaline Phosphatase 47 U/L (40-110); Anion Gap 9 mmol/L (10-20); BUN (Urea Nitrogen) 12 mg/dL (8.4-25.7); Bilirubin, Total 0.5 mg/dL (0.2-1.2); Calc. Creatinine Clearance 76 mL/min (70-130); Calcium 8.3 mg/dL (7.8-10.44); Carbon Dioxide 26 mmol/L (23-31); Chloride 108 mmol/L (98-107); Estimated GFR 87; Glucose 89 mg/dL (83-110); Potassium 3.9 mmol/L (3.5-5.1); Protein, Total 4.9 g/dL (5.8-8.1); Sodium 139 mmol/L (136-145)
[2022-12-19] MEDS: Terbinafine 250 MG TAB PO SCH (10:46)
[2022-12-19] MEDS: Finasteride 5 MG TAB PO SCH (10:47)
[2022-12-19] MEDS: Tamsulosin HCl 0.4 MG CAP PO SCH ×2 (10:47→21:33)
[2022-12-19] MEDS: Furosemide 20 MG TAB PO SCH (10:47)
[2022-12-19] MEDS: Cefepime 2 GM in Sodium Chloride 0.9% 100 ML IVPB SCH ×2 (10:48→21:33)
[2022-12-19] MEDS: Potassium Chloride 20 MEQ TAB PO SCH (11:18)
[2022-12-19] MEDS: VANCOMYCIN 1.25 GM/250 ML BAG 1.25 GM in Premix Bag 1 BAG IVPB SCH (14:12)
[2022-12-19] MEDS: Atorvastatin Calcium 10 MG TAB PO SCH (21:33)
[2022-12-19 23:46] LABS: Vancomycin, Trough 17.8 ug/mL
[2022-12-20] MEDS: VANCOMYCIN 1.25 GM/250 ML BAG 1.25 GM in Premix Bag 1 BAG IVPB SCH ×2 (00:02→11:17)
[2022-12-20 05:51] LABS: #Basophils 0.1 thou/uL (0.0-0.2); #Eosinphils 0.3 thou/uL (0.0-0.7); #Monocytes 0.6 thou/uL (0.11-0.59); %Basophils 0.8 % (0.0-1.0); %Lymphocytes 15.9 % (21.0-51.0); %Monocytes 10.6 % (0.0-10.0); %Neutrophils 66.5 % (42.0-75.0); Hematocrit 34.8 % (42.0-52.0); Hemoglobin 11.1 g/dL (14.0-18.0); Mean Corpuscular HGB CONC 31.9 g/dL (32.0-36.0); Mean Corpuscular Hemoglobin 31.2 pg (27.0-31.0); Mean Corpuscular Volume 97.8 fl (78.0-98.0); Mean Platelet Volume 11.2 fL (7.4-10.4); Platelet Count 129 10x3/uL (130-400); RBC Distribution Width 14.3 % (11.5-14.5); Red Blood Cell (RBC) Count 3.56 mill/uL (4.70-6.10); White Blood Cell (WBC) Count 6.1 10x3/uL (4.8-10.8)
[2022-12-20 06:17] LABS: ALT (SGPT) 11 U/L (8-55); AST (SGOT) 11 U/L (5-34); Alkaline Phosphatase 48 U/L (40-110); Anion Gap 9 mmol/L (10-20); BUN (Urea Nitrogen) 16 mg/dL (8.4-25.7); Bilirubin, Total 0.5 mg/dL (0.2-1.2); Calc. Creatinine Clearance 77 mL/min (70-130); Calcium 8.4 mg/dL (7.8-10.44); Carbon Dioxide 27 mmol/L (23-31); Chloride 109 mmol/L (98-107); Estimated GFR 88; Globulin 2.3 g/dL (2.4-3.5); Glucose 91 mg/dL (83-110); Potassium 3.9 mmol/L (3.5-5.1); Protein, Total 5.3 g/dL (5.8-8.1); Sodium 141 mmol/L (136-145)
[2022-12-20] MEDS: Cefepime 2 GM in Sodium Chloride 0.9% 100 ML IVPB SCH (08:14)
[2022-12-20] MEDS: Tamsulosin HCl 0.4 MG CAP PO SCH ×2 (08:15→21:56)
[2022-12-20] MEDS: Finasteride 5 MG TAB PO SCH (08:15)
[2022-12-20] MEDS: Terbinafine 250 MG TAB PO SCH (08:15)
[2022-12-20] MEDS: Potassium Chloride 20 MEQ TAB PO SCH (08:15)
[2022-12-20] MEDS: Furosemide 20 MG TAB PO SCH (08:15)
[2022-12-20] MEDS: Linezolid 600 MG TAB PO SCH (21:56)
[2022-12-20] MEDS: Acetaminophen 325 MG TAB PO PRN (21:56)
[2022-12-20] MEDS: Atorvastatin Calcium 10 MG TAB PO SCH (21:57)
[2022-12-21 05:19] LABS: #Eosinphils 0.4 thou/uL (0.0-0.7); #Monocytes 0.5 thou/uL (0.11-0.59); #Neutrophils 3.4 thou/uL (1.40-6.50); %Basophils 0.5 % (0.0-1.0); %Lymphocytes 19.7 % (21.0-51.0); %Monocytes 9.6 % (0.0-10.0); %Neutrophils 60.9 % (42.0-75.0); Hematocrit 35.5 % (42.0-52.0); Hemoglobin 11.5 g/dL (14.0-18.0); Mean Corpuscular HGB CONC 32.4 g/dL (32.0-36.0); Mean Corpuscular Hemoglobin 31.8 pg (27.0-31.0); Mean Corpuscular Volume 98.1 fl (78.0-98.0); Mean Platelet Volume 11.1 fL (7.4-10.4); Platelet Count 148 10x3/uL (130-400); RBC Distribution Width 14.3 % (11.5-14.5); Red Blood Cell (RBC) Count 3.62 mill/uL (4.70-6.10); White Blood Cell (WBC) Count 5.5 10x3/uL (4.8-10.8)
[2022-12-21 05:47] LABS: ALT (SGPT) 12 U/L (8-55); AST (SGOT) 12 U/L (5-34); Albumin 3.1 g/dL (3.4-4.8); Alkaline Phosphatase 50 U/L (40-110); Anion Gap 11 mmol/L (10-20); BUN (Urea Nitrogen) 15 mg/dL (8.4-25.7); Bilirubin, Total 0.3 mg/dL (0.2-1.2); Calc. Creatinine Clearance 73 mL/min (70-130); Calcium 8.6 mg/dL (7.8-10.44); Carbon Dioxide 27 mmol/L (23-31); Chloride 106 mmol/L (98-107); Estimated GFR 86; Globulin 2.6 g/dL (2.4-3.5); Glucose 93 mg/dL (83-110); Potassium 3.9 mmol/L (3.5-5.1); Protein, Total 5.7 g/dL (5.8-8.1); Sodium 140 mmol/L (136-145)
[2022-12-21] MEDS: Tamsulosin HCl 0.4 MG CAP PO SCH ×2 (10:35→20:41)
[2022-12-21] MEDS: Terbinafine 250 MG TAB PO SCH (10:35)
[2022-12-21] MEDS: Finasteride 5 MG TAB PO SCH (10:36)
[2022-12-21] MEDS: Potassium Chloride 20 MEQ TAB PO SCH (10:36)
[2022-12-21] MEDS: Linezolid 600 MG TAB PO SCH ×2 (10:36→20:41)
[2022-12-21] MEDS: Furosemide 20 MG TAB PO SCH (10:36)
[2022-12-21] MEDS: Atorvastatin Calcium 10 MG TAB PO SCH (20:41)
[2022-12-22] MEDS: Tamsulosin HCl 0.4 MG CAP PO SCH (08:56)
[2022-12-22] MEDS: Terbinafine 250 MG TAB PO SCH (08:56)
[2022-12-22] MEDS: Finasteride 5 MG TAB PO SCH (08:56)
[2022-12-22] MEDS: Potassium Chloride 20 MEQ TAB PO SCH (08:56)
[2022-12-22] MEDS: Furosemide 20 MG TAB PO SCH (08:56)
[2022-12-22 09:19] VITALS: BP 119/73; TEMP 98.3
[2022-12-22] MEDS: Linezolid 600 MG TAB PO SCH (12:01)
== END 2022-12-22 14:22 | disposition home or self-care (01) | DRG 603 ==
LOC: ERS 16:06 → SJJU 21:09 → OBSVTOIN 12-15 16:48
PROVIDERS: ADMIT Student in an Organized Health Care Education/Training Program; ATTEND Student in an Organized Health Care Education/Training Program
DX: L03.115 Cellulitis of right lower limb (principal); E87.20 Acidosis, unspecified; N40.0 Benign prostatic hyperplasia without lower urinary tract symptoms; H54.7 Unspecified visual loss; I10 Essential (primary) hypertension; R53.81 Other malaise; R50.9 Fever, unspecified; B35.1 Tinea unguium; E87.6 Hypokalemia; D53.9 Nutritional anemia, unspecified; D69.6 Thrombocytopenia, unspecified; G31.84 Mild cognitive impairment of uncertain or unknown etiology; Z88.5 Allergy status to narcotic agent; Z79.899 Other long term (current) drug therapy; Z98.890 Other specified postprocedural states
CPT/HCPCS: 36415; 71045; 80053; 80202; 81001; 81003; 83605; 83690; 83735; 85025; 86140; 87040; 96365; 96366; 96367; 96372; 96376; G0378; J0692; J1650; J3370; J3370-JW; J3490; J7120